=== PATIENT | female | born 1995 | race Caucasian/White ===

== ENCOUNTER → 2017-05-09 | Outpatient (CLI) | payer OTHER ==
--- NOTE | 2017-05-09 10:57 | DIAGNOSTIC IMAGING REPORT ---
CHEST 2 VIEWS ROUTINE HISTORY: 21 years-old Female R05 CstmcP63.2 [id number] asthma COMPARISON: None available TECHNIQUE: Frontal and lateral views of the chest FINDINGS: Cardiomediastinal and hilar silhouettes are within normal limits. No pneumothorax, pleural effusion or focal airspace consolidation. There is no significant hyperinflation or bronchial wall thickening identified. Bones are grossly intact. Upper abdominal structures are within normal limits. IMPRESSION: Normal chest radiographs. The above report was generated using voice recognition software. It may contain grammatical, syntax or spelling errors. Electronically signed by: Andrew Yang M.D. 05/09/2017 10:56 AM Dictated Date/Time: 05/09/2017 10:55 AM
== END | disposition home or self-care (01) ==
LOC: C.RAD1850 10:45
PROVIDERS: ATTEND Internal Medicine Pulmonary Disease
DX: R06.2 Wheezing (principal); R05 Cough; J45.909 Unspecified asthma, uncomplicated